=== PATIENT | female | born 1985 | race Caucasian/White ===

== ENCOUNTER 2018-06-20 14:35 | Emergency (ER) | payer OTHER ==
[2018-06-20 14:51] VITALS: RESP 18
[2018-06-20] MEDS ORDERED: KETOROLAC 30 MG/ML 1 ML VIAL IVP STA (15:13)
[2018-06-20] MEDS ORDERED: SODIUM CHLORIDE 0.9% 1,000 ML IV STA (15:13)
[2018-06-20] MEDS ORDERED: ONDANSETRON 4 MG/2 ML VIAL IVP STA (15:13)
--- NOTE | 2018-06-20 15:22 | ED ---
Headache HPI - General Chief Complaint: Headache Stated Complaint: POSS MED REACTION, MIGRAINE Time Seen by Provider: 06/20/18 15:07 Source: patient, RN notes reviewed Mode of arrival: ambulatory Limitations: no limitations - History of Present Illness Initial Comments: This is a 33-year-old female with history of migraine headaches who presents to the emergency department with chief complaint of migraine. Patient states that she has a history of IBS and sees a dean of instruction out of [facility]. She states that on Sunday she was started on a new medication for IBS, . She states that Sunday night she developed a migraine and has tried taking Excedrin migraine as well as Motrin with minimal relief of symptoms. She reports that she does get weekly migraines but that they normally go away. She states that this migraine has gotten better but has not fully resolved. She admits to nausea but denies vomiting. Denies fevers or chills, vision changes. Patient states that she is currently not . - Related Data Allergies Allergy/AdvReac Type Severity Reaction Status Date / Time acetaminophen [From Vicodin] Allergy Rash/Hives Verified 06/20/18 14:51 furosemide [From Lasix] Allergy Rash/Hives Verified 06/20/18 14:51 hydrocodone [From Vicodin] Allergy Rash/Hives Verified 06/20/18 14:51 latex Allergy Rash/Hives Verified 06/20/18 14:51 metoclopramide [From Reglan] Allergy Confusion Verified 06/20/18 14:51 Review of Systems ROS Statement: Those systems with pertinent positive or pertinent negative responses have been documented in the HPI. ROS Other: All systems not noted in ROS Statement are negative. Constitutional: Denies: fever, chills Eyes: Reports: eye pain. Denies: vision change Cardiovascular: Denies: chest pain Gastrointestinal: Reports: nausea. Denies: vomiting Neurological: Reports: headache. Denies: weakness Past Medical History Past Medical History: Asthma Additional Past Medical History / Comment(s): ibs pancreatitis History of Any Multi-Drug Resistant Organisms: None Reported Past Surgical History: Adenoidectomy, Section, Cholecystectomy, Hernia Repair, Orthopedic Surgery, Tonsillectomy, Tubal Ligation Additional Past Surgical History / Comment(s): r knee ankle loop recorder Past Psychological History: No Psychological Hx Reported, Anxiety, Depression Smoking Status: Current every day smoker Past Alcohol Use History: None Reported Past Drug Use History: Marijuana General Exam - General Exam Comments Initial Comments: General: Awake and alert, well-developed; in mild distress. Resting on ED stretcher in position with lights dimmed. HEENT: Head atraumatic, normocephalic. Pupils are equal, round and reactive to light. Extraocular movements intact. Oropharynx moist without erythema or exudate. Neck: Supple. Normal ROM. Cardiovascular: Regular rate and rhythm. No murmurs, rubs or gallops. Chest symmetrical. Respiratory: Lungs clear to auscultation bilaterally. No wheezes, rales or rhonchi. Normal respiratory effort with no use of accessory muscles. Musculoskeletal: Normal ROM, no tenderness bilateral upper and lower extremities. Ambulating normally. Skin: [place], warm and dry without rashes or lesions. Neurological: Alert and oriented x3. Speech is fluent and answers are appropriate. Psychiatric: Normal mood and affect. No overt signs of depression or anxiety noted. Limitations: no limitations Course Vital Signs 06/20/18 14:46 Temperature 98.6 F Pulse Rate 74 Respiratory 18 Rate Blood Pressure 115/78 O2 Sat by Pulse 100 Oximetry - Reevaluation(s) Reevaluation #1: pt reports sudden increase in pain, specifically to left side of head. reports she felt something "pop." states this is unlike any headache she has ever had and she is having difficulty focusing her vision. ct scan of the brain is ordered. 06/20/18 15:47 Medical Decision Making - Medical Decision Making This is a 33-year-old female who presents to the emergency department with chief complaint of migraine headache. Patient has a history of migraine headaches. She states that they are normally resolved with [id number] medications. She believes that this migraine has not resolved as she was recently started on a new medication for IBS. A common side effect of this medication is headaches. She reports that she has continued to take the medication, but has not contacted her dean of instruction regarding this side effect. Patient given IV fluids and headache cocktail on the emergency department. Patient complained of sudden increase in pain and a "popping sensation" that is worse than any thing she has experienced. A computed tomography scan was obtained which revealed no acute abnormalities. On reevaluation, patient reports that her headache has resolved. She is ready for discharge home. Vital signs have been stable and she is no acute distress. She will be discharged home at this time. All questions were answered. - Radiology Data Radiology results: report reviewed CT brain without contrast impression: Normal CT brain Disposition Clinical Impression: Headache Disposition: HOME SELF-CARE Condition: Good Instructions: Acute Headache (ED) Additional Instructions: Please follow up with primary care provider within 1-2 days. Return to emergency department if symptoms should worsen or any concerns arise. Is patient prescribed a controlled substance at d/c from ED?: No Referrals: Kasia Bird MD [Primary Care Provider] - 1-2 days Time of Disposition: 17:24
--- NOTE | 2018-06-20 16:17 | CT ---
EXAMINATION TYPE: CT brain wo con DATE OF EXAM: 06/20/2018 COMPARISON: None INDICATION: Headache. Patient felt "pop" behind left eye and is having visual disturbance. DLP: 1060.4 mGycm, Automated exposure control for dose reduction was used. CONTRAST: None CT of the brain is performed utilizing 3 mm thick sections through the posterior fossa and 3 mm thick sections through the remaining calvarium. Study is performed within 24 hours of arrival to the hosp [facility]. No abnormal hyperdensity is present to suggest an acute intracranial hemorrhage. No mass lesion is evident. No acute infarcts are evident. Ventricles and sulci are appropriate for the patient age. Paranasal sinuses and mastoid air cells within the [id number] are clear. IMPRESSIONS: 1. Normal CT Brain
[2018-06-20 17:39] VITALS: BP 111/65; PULSE 70; TEMP 98.3
== END 2018-06-20 17:31 | disposition home or self-care (01) ==
LOC: EC 14:35
DX: R51 Headache (principal); R11.0 Nausea; K58.9 Irritable bowel syndrome, unspecified; F17.200 Nicotine dependence, unspecified, uncomplicated; Z79.899 Other long term (current) drug therapy; Z88.6 Allergy status to analgesic agent; Z91.040 Latex allergy status; Z88.5 Allergy status to narcotic agent; Z88.8 Allergy status to other drugs, medicaments and biological substances
CPT/HCPCS: 70450; 99283; 96374; 96375; 96361 ×2; J2405; J1885

== ENCOUNTER → 2018-06-28 | Outpatient (CLI) | payer OTHER ==
--- NOTE | 2018-06-28 15:19 | MR ---
EXAMINATION TYPE: MR brain wo con, MR angio head wo con DATE OF EXAM: 06/28/2018 COMPARISON: CT brain dated 06/20/2018 HISTORY: Migraines, memory loss. Visual disturbance of the left eye. TECHNIQUE: Multiplanar, multisequence images of the brain and brainstem is performed without intravenous contras t. [id number] imaging was performed of the intracranial vasculature with 3-D reformats created fo r review for the MRA portion of the examination. FINDINGS: Diffusion weighted images demonstrate no evidence of a recent infarct or other diffusion abnormality. There is no extra-axial fluid collection. There is a solitary punctate focus of subcortical T2/FLAI R hyperintensity in the left parietal lobe on FLAIR axial fat-sat image 19 measuring 3 mm. No other s ignificant white matter change is appreciated. The ventricular system and cisternal spaces are normal in size and appearance. The brain volume is age appropriate. The extraocular muscles and orbits are symmetric. Meckel's cave is unremarkable. No intraconal or ext raconal masses are identified. Optic nerves appear symmetric and overall unremarkable. Lenses are in place. Posterior circulation appears intact. The vertebral arteries are codominant. No aneurysm is seen. No dissection is noted. The [place] of [place] is intact. Anterior circulation appears unremarkable without aneurysm, hemodynam ically significant stenosis, or occlusion. The ophthalmic arteries appear patent and unremarkable in their proximal visualized portions. Distal portions are diminutive bilaterally and not well-visualized. Midline structures demonstrate normal morphology. The craniocervical junction appears within normal limits. intact. IMPRESSION: 1. No evidence of intracranial aneurysm, hemodynamically significant stenosis, or dissection. Specifi zulay the ophthalmic arteries appear unremarkable in their proximal visualized portions. Distal porti ons appear diminutive and are not well visualized bilaterally. 2. Solitary punctate focus of white matter change in the left parietal lobe and a subcortical locatio n. Although this is nonspecific as can be seen in migraines or vasculitis. Demyelinating disease is c onsidered unlikely given the distribution. 3. No evidence of acute infarct, mass effect or midline shift.
== END | disposition home or self-care (01) ==
LOC: RADMRIMAIN 11:23
PROVIDERS: ATTEND Psychiatry & Neurology Neurology
DX: R90.89 Other abnormal findings on diagnostic imaging of central nervous system (principal); G43.109 Migraine with aura, not intractable, without status migrainosus; R41.3 Other amnesia
CPT/HCPCS: 70544; 70551